=== PATIENT | male | born 1960 | race Caucasian/White ===

== ENCOUNTER 2018-02-01 07:29 | Emergency (ER) | payer BC ==
[2018-02-01 07:50] VITALS: BP 158/85
--- NOTE | 2018-02-01 07:51 | UC ---
Respiratory Complaint HPI - HPI Summary HPI Summary: 57 yo male with productive cough x 2 weeks post nasal drip sinus congestion no f/c low energy no CP or sob - History of Current Complaint Stated Complaint: RESPIRATORY Time Seen by Provider: 02/01/18 07:49 Hx Obtained From: Patient Onset/Duration: Gradual Onset, Lasting Weeks Timing: Constant Severity Initially: Mild Severity Currently: Moderate Pain Intensity: 0 Pain Scale Used: 0-10 Numeric Character: Cough: Productive, Sputum Description: - dark green Associated Signs And Symptoms: Positive: URI, Nasal Congestion, Hoarseness, Sinus Discomfort - Allergies/Home Medications Allergies/Adverse Reactions: Allergies Allergy/AdvReac Type Severity Reaction Status Date / Time No Known Allergies Allergy Verified 02/01/18 07:40 Home Medications: Home Medications Atorvastatin* [Lipitor*] 40 mg PO DAILY 02/01/18 [History Confirmed 02/01/18] Cholecalciferol TAB* [Vitamin D TAB*] 2,000 units PO DAILY 02/01/18 [History Confirmed 02/01/18] Levothyroxine TAB* [Synthroid TAB*] 25 mcg PO 0800 02/01/18 [History Confirmed 02/01/18] Losartan TAB* [Cozaar TAB*] 25 mg PO DAILY 02/01/18 [History Confirmed 02/01/18] PMH/Surg Hx/FS Hx/Imm Hx Previously Healthy: Yes Endocrine History: Thyroid Disease, Dyslipidemia Cardiovascular History: Hypertension - Surgical History Surgical History: Yes Surgery Procedure, Year, and Place: hernia. rectal abcess - Family History Known Family History: Positive: Hypertension - Social History Alcohol Use: Occasionally Substance Use Type: None Smoking Status (MU): Never Smoked Tobacco Review of Systems Constitutional: Fatigue Skin: Negative Eyes: Negative ENT: Nasal Discharge, Sinus Congestion Respiratory: Cough Cardiovascular: Negative Gastrointestinal: Negative Genitourinary: Negative Motor: Negative Neurovascular: Negative Musculoskeletal: Negative Neurological: Negative Psychological: Negative Is Patient Immunocompromised?: No All Other Systems Reviewed And Are Negative: Yes Physical Exam Triage Information Reviewed: Yes Appearance: Well-Appearing, No Pain Distress, Well-Nourished Vital Signs: Initial Vital Signs Temp 98.1 F 02/01/18 07:45 Pulse 79 02/01/18 07:45 Resp 18 02/01/18 07:45 BP 158/85 02/01/18 07:45 Pulse Ox 98 02/01/18 07:45 Eyes: Positive: Conjunctiva Clear ENT: Positive: Hearing grossly normal, Nasal congestion, Nasal drainage. Negative: TMs normal - unable to viz due to cerumen, Tonsillar swelling, Tonsillar exudate, Trismus, Muffled voice, Hoarse voice, Dental tenderness, Sinus tenderness, Uvula midline Neck: Positive: Supple, Nontender, No Lymphadenopathy Respiratory: Positive: Lungs clear, Normal breath sounds, No respiratory distress, No accessory muscle use Cardiovascular: Positive: RRR, No Murmur Musculoskeletal: Positive: ROM Intact, No Edema Neurological: Positive: Alert Psychological Exam: Normal Skin Exam: Normal Diagnostic Evaluation - Laboratory O2 Sat by Pulse Oximetry: 98 - normal/not hypoxic Respiratory Course/Dx - Differential Dx/Diagnosis Provider Diagnoses: acute bronchitis Discharge - Sign-Out/Discharge Documenting (check all that apply): Discharge - Discharge Plan Condition: Stable Disposition: HOME Prescriptions: Amoxicillin PO (*) [Amoxicillin 875 MG (*)] 875 mg PO BID #20 tab Patient Education Materials: Sinusitis (ED) Referrals: Ata Reilly DO [Primary Care Provider] - 5 Days (if not better) Additional Instructions: saline nasal spray twice daily - Billing Disposition and Condition Condition: STABLE Disposition: HOME
== END 2018-02-01 08:10 | disposition home or self-care (01) ==
LOC: UCCORT 07:29
DX: J20.9 Acute bronchitis, unspecified (principal)
CPT/HCPCS: 99202; G0463